=== PATIENT | male | born 1995 | race Caucasian/White ===

== ENCOUNTER 2018-11-06 09:29 | Emergency (ER) | payer SELFPAY ==
[~2018-11-06] VITALS: Ht 177.8 cm; Wt 68.0 kg
[2018-11-06 09:36] VITALS: BP 114/82
[2018-11-06] MEDS ORDERED: IBUPROFEN 200 MG TABLET ONE (10:23)
[2018-11-06] MEDS ORDERED: IBUPROFEN 600 MG TABLET PO ONE (10:30)
== END 2018-11-06 10:35 | disposition home or self-care (01) ==
LOC: ED 10:26
DX: K08.89 Other specified disorders of teeth and supporting structures (principal)
CPT/HCPCS: 99283